=== PATIENT | female | born 1975 | race Caucasian/White ===

== ENCOUNTER 2018-02-13 06:40 | Emergency (ER) | payer OTHER ==
[2018-02-13] MEDS: SOD CHLORIDE 0.9% 1,000 ML IV (07:45)
[2018-02-13] MEDS: KETOROLAC 30 MG INJ IV (07:45)
[2018-02-13] MEDS: ONDANSETRON 4 MG INJ IV (07:45)
[2018-02-13 07:48] LABS: ADD MAN DIFF? NO
[2018-02-13 07:52] LABS: WHITE BLOOD COUNT 7.3 10^3/ul (4.8-10.8)
[2018-02-13 07:52] LABS: BASOPHIL # 0.1 10^3/ul (0.0-0.1); BASOPHILS % 0.8 % (0.0-2.0); EOSINOPHILS # 0.4 10^3/ul (0.0-0.5); EOSINOPHILS % 4.8 % (0.0-7.0); HEMATOCRIT 39.2 % (37.0-47.0); HEMOGLOBIN 13.3 g/dl (12.0-16.0); LYMPHOCYTES % 27.5 % (15.0-51.0); MEAN CORPUSCULAR HEMOGLOBIN 30.8 pg (29.0-33.0); MEAN CORPUSCULAR HGB CONC 33.9 g/dl (32.0-37.0); MEAN CORPUSCULAR VOLUME 90.7 fl (82.0-101.0); MEAN PLATELET VOLUME 11.9 fl (7.4-10.4); MONOCYTE # 0.8 10^3/ul (0.3-0.9); MONOCYTES % 10.5 % (0.0-11.0); NEUTROPHIL # 4.1 10^3/ul (1.6-7.5); PLATELET COUNT 208 10^3/UL (140-415); RED BLOOD COUNT 4.32 10^6/ul (4.20-5.40); RED CELL DISTRIBUTION WIDTH 12.8 % (11.5-14.5)
[2018-02-13 07:56] LABS: ADD UMIC YES; UR ASCORBIC ACID NEGATIVE (NEGATIVE); UR BACTERIA FEW /HPF (NONE SEEN); UR BILIRUBIN (Dip) NEGATIVE (NEGATIVE); UR BLOOD (Dip) 1+ mg/dL (NEGATIVE); UR CALCIUM OXALATE CRYSTAL FEW /HPF (NONE SEEN); UR CLARITY SLIGHTLY CLOUDY (CLEAR); UR COLOR AMBER (YELLOW); UR GLUCOSE (Dip) NEGATIVE (NEGATIVE); UR KETONES (Dip) NEGATIVE (NEGATIVE); UR LEUKOCYTE ESTERASE (Dip) NEGATIVE Leu/ul (NEGATIVE); UR MUCUS FEW /HPF (NONE SEEN); UR NITRITE (Dip) POSITIVE (NEGATIVE); UR RBC 6 /HPF (0-5); UR SPECIFIC GRAVITY (Dip) 1.024 (1.003-1.030); UR SQUAMOUS EPITHELIAL CELL FEW /HPF (FEW); UR TOTAL PROTEIN (Dip) 1+ mg/dl (NEGATIVE); UR UROBILINOGEN (Dip) 2+ mg/dL (NEGATIVE); UR WBC 4 /HPF (0-5)
[2018-02-13 08:28] LABS: ALANINE AMINOTRANSFERASE 25 IU/L (13-69); ALBUMIN/GLOBULIN RATIO 1.03; ALKALINE PHOSPHATASE 56 IU/L (42-121); ANION GAP 9 (5-13); ASPARTATE AMINO TRANSFERASE 29 IU/L (15-46); BILIRUBIN,INDIRECT 1.2 mg/dl (0-1.1); BILIRUBIN,TOTAL 1.2 mg/dl (0.2-1.3); BLOOD UREA NITROGEN 9 mg/dl (7-20); CALCIUM 8.7 mg/dl (8.4-10.2); CARBON DIOXIDE 23 mmol/L (21-31); CHLORIDE 109 mmol/L (97-110); CREATININE 0.71 mg/dl (0.44-1.00); GLUCOSE 98 mg/dl (70-220); LIPASE 131 U/L (23-300); POTASSIUM 3.3 mmol/L (3.5-5.1); SODIUM 141 mmol/L (135-144); TOTAL PROTEIN 5.9 g/dl (6.1-8.1)
[2018-02-13] MEDS: morphine 4 MG/ML VIAL IV (09:25)
[2018-02-13] MEDS: CEFTRIAXONE 1 GM/50 ML (PMX) 50 ML IVPB (09:44)
[2018-02-13] MEDS: morphine 2 MG INJ IV (11:37)
[2018-02-13] MEDS: ONDANSETRON (ODT) 4 MG TAB ODT (11:56)
== END 2018-02-13 12:08 | disposition home or self-care (01) ==
LOC: FTE 06:40
DX: N39.0 Urinary tract infection, site not specified (principal); F17.210 Nicotine dependence, cigarettes, uncomplicated
CPT/HCPCS: 36415; 76775; 80053; 81001; 81025; 83605; 83690; 85025; 87086; 96374; 96375; 96376; 99285-25

== ENCOUNTER 2018-03-08 07:18 | Inpatient (IN) | payer OTHER ==
[2018-03-08 08:05] LABS: ADD MAN DIFF? NO
[2018-03-08] MEDS: ONDANSETRON 4 MG INJ IV (08:05)
[2018-03-08] MEDS: SOD CHLORIDE 0.9% 1,000 ML IV (08:05)
[2018-03-08] MEDS: morphine 4 MG/ML VIAL IV (08:05)
[2018-03-08 08:06] LABS: WHITE BLOOD COUNT 8.1 10^3/ul (4.8-10.8)
[2018-03-08 08:06] LABS: BASOPHIL # 0.1 10^3/ul (0.0-0.1); EOSINOPHILS # 0.4 10^3/ul (0.0-0.5); EOSINOPHILS % 5.3 % (0.0-7.0); HEMATOCRIT 44.3 % (37.0-47.0); HEMOGLOBIN 15.2 g/dl (12.0-16.0); LYMPHOCYTES # 2.8 10^3/ul (0.8-2.9); LYMPHOCYTES % 34.8 % (15.0-51.0); MEAN CORPUSCULAR HEMOGLOBIN 30.9 pg (29.0-33.0); MEAN CORPUSCULAR HGB CONC 34.3 g/dl (32.0-37.0); MEAN PLATELET VOLUME 11.5 fl (7.4-10.4); MONOCYTE # 1.2 10^3/ul (0.3-0.9); NEUTROPHIL # 3.5 10^3/ul (1.6-7.5); NEUTROPHILS % 43.5 % (39.0-77.0); PLATELET COUNT 244 10^3/UL (140-415); RED BLOOD COUNT 4.92 10^6/ul (4.20-5.40)
[2018-03-08 08:42] LABS: ADD UMIC YES; UR ASCORBIC ACID NEGATIVE (NEGATIVE); UR BACTERIA FEW /HPF (NONE SEEN); UR BILIRUBIN (Dip) NEGATIVE (NEGATIVE); UR BLOOD (Dip) NEGATIVE (NEGATIVE); UR CLARITY CLOUDY (CLEAR); UR COLOR AMBER (YELLOW); UR GLUCOSE (Dip) NEGATIVE (NEGATIVE); UR KETONES (Dip) NEGATIVE (NEGATIVE); UR LEUKOCYTE ESTERASE (Dip) 3+ Leu/ul (NEGATIVE); UR MUCUS FEW /HPF (NONE SEEN); UR NITRITE (Dip) NEGATIVE (NEGATIVE); UR NONSQUAMOUS EPITHELIAL CELL 3 /HPF (NONE SEEN); UR RBC 20 /HPF (0-5); UR SQUAMOUS EPITHELIAL CELL MANY /HPF (FEW); UR TOTAL PROTEIN (Dip) 1+ mg/dl (NEGATIVE); UR UROBILINOGEN (Dip) 1+ mg/dL (NEGATIVE); UR WBC 40 /HPF (0-5)
[2018-03-08 09:39] LABS: ALANINE AMINOTRANSFERASE 18 IU/L (13-69); ALBUMIN/GLOBULIN RATIO 1.17; ALKALINE PHOSPHATASE 81 IU/L (42-121); ANION GAP 9 (5-13); ASPARTATE AMINO TRANSFERASE 24 IU/L (15-46); BILIRUBIN,INDIRECT 0.5 mg/dl (0-1.1); BILIRUBIN,TOTAL 0.5 mg/dl (0.2-1.3); BLOOD UREA NITROGEN 11 mg/dl (7-20); CALCIUM 9.5 mg/dl (8.4-10.2); CARBON DIOXIDE 22 mmol/L (21-31); CHLORIDE 110 mmol/L (97-110); CREATININE 0.97 mg/dl (0.44-1.00); Estimated GFR > 60 mL/min (>60); GLUCOSE 109 mg/dl (70-220); LIPASE 93 U/L (23-300); POTASSIUM 5.1 mmol/L (3.5-5.1); SODIUM 141 mmol/L (135-144); TOTAL PROTEIN 7.4 g/dl (6.1-8.1)
[2018-03-08] MEDS: HYDROmorphONE 2 MG/ML SYG IV (10:11)
[2018-03-08] MEDS: CEFTRIAXONE 1 GM/50 ML (PMX) 50 ML IVPB (10:11)
[2018-03-08] MEDS ORDERED: ALBUTEROL 0.5% (NEB) 2.5 MG/0.5 ML AMP (10:42)
[2018-03-08] MEDS ORDERED: IPRATROPIUM (NEB) 0.5 MG/2.5 ML AMP (10:42)
[2018-03-08] MEDS ORDERED: ACETAMINOPHEN 325 MG TAB PO ×2 (11:00→12:30)
[2018-03-08] MEDS ORDERED: ONDANSETRON 4 MG INJ IV (11:00)
[2018-03-08] MEDS ORDERED: ERTAPENEM SODIUM 1 GM in SOD CHLORIDE 0.9% 100 ML IVPB (12:00)
[2018-03-08] MEDS ORDERED: NACL 0.9% 3 ML SYG IV (12:30)
[2018-03-08 13:37] LABS: HEMOGLOBIN A1C 4.6 % (0-5.9)
[2018-03-08] MEDS: morphine 2 MG INJ IV ×2 (14:00→22:54)
[2018-03-08] MEDS: ERTAPENEM SODIUM 1 GM in SOD CHLORIDE 0.9% 100 ML IVPB (14:00)
[2018-03-08] MEDS: GABAPENTIN 300 MG CAP PO ×2 (14:00→21:13)
[2018-03-08] MEDS ORDERED: PANTOPRAZOLE (EC) 40 MG TAB PO (14:00)
[2018-03-08] MEDS: POLYETHYLENE GLYCOL 17 GM PACKET NGT ×2 (14:14→21:13)
[2018-03-08] MEDS: ENOXAPARIN 40 MG/0.4 ML SYG SC (14:15)
[2018-03-08] MEDS: LEVOFLOXACIN 750MG/D5W (PMX) 150 ML IVPB (15:21)
[2018-03-08] MEDS: PANTOPRAZOLE (EC) 40 MG TAB PO (15:21)
[2018-03-08] MEDS: BISACODYL (EC) 5 MG TAB PO (15:21)
[2018-03-08] MEDS: OXYCODONE/ACETAMINOPHEN (10/325) TAB PO (16:11)
[2018-03-08] MEDS: POLYETHYLENE GLYCOL 3350 119 GM POWDER PO (18:06)
[2018-03-08] MEDS: MAGNESIUM CITRATE 300 ML BTL PO (18:06)
[2018-03-08 19:23] LABS: AMPHETAMINE/METHAMPHETAMINE Negative (NEGATIVE); BARBITURATES Negative (NEGATIVE); BENZODIAZEPINES Negative (NEGATIVE); CANNABINOIDS Positive (NEGATIVE); COCAINE Negative (NEGATIVE)
[2018-03-08 19:24] LABS: OPIATES Positive (NEGATIVE)
[2018-03-09] MEDS: morphine 2 MG INJ IV ×5 (04:45→23:19)
[2018-03-09 05:19] LABS: ADD MAN DIFF? NO
[2018-03-09 05:23] LABS: WHITE BLOOD COUNT 6.5 10^3/ul (4.8-10.8)
[2018-03-09 05:23] LABS: BASOPHIL # 0.1 10^3/ul (0.0-0.1); BASOPHILS % 0.9 % (0.0-2.0); EOSINOPHILS # 0.4 10^3/ul (0.0-0.5); HEMATOCRIT 41.9 % (37.0-47.0); HEMOGLOBIN 14.2 g/dl (12.0-16.0); LYMPHOCYTES % 46.2 % (15.0-51.0); MEAN CORPUSCULAR HEMOGLOBIN 30.8 pg (29.0-33.0); MEAN CORPUSCULAR HGB CONC 33.9 g/dl (32.0-37.0); MEAN CORPUSCULAR VOLUME 90.9 fl (82.0-101.0); MEAN PLATELET VOLUME 10.8 fl (7.4-10.4); MONOCYTE # 0.7 10^3/ul (0.3-0.9); MONOCYTES % 10.3 % (0.0-11.0); NEUTROPHIL # 2.4 10^3/ul (1.6-7.5); NEUTROPHILS % 36.4 % (39.0-77.0); PLATELET COUNT 260 10^3/UL (140-415); RED BLOOD COUNT 4.61 10^6/ul (4.20-5.40); RED CELL DISTRIBUTION WIDTH 13.1 % (11.5-14.5)
[2018-03-09] MEDS: PANTOPRAZOLE (EC) 40 MG TAB PO ×2 (05:55→17:42)
[2018-03-09] MEDS: POLYETHYLENE GLYCOL 3350 119 GM POWDER PO (05:55)
[2018-03-09 05:56] LABS: ALANINE AMINOTRANSFERASE 21 IU/L (13-69); ALBUMIN/GLOBULIN RATIO 1.48; ALKALINE PHOSPHATASE 68 IU/L (42-121); ANION GAP 9 (5-13); ASPARTATE AMINO TRANSFERASE 24 IU/L (15-46); BILIRUBIN,INDIRECT 0.5 mg/dl (0-1.1); BILIRUBIN,TOTAL 0.5 mg/dl (0.2-1.3); BLOOD UREA NITROGEN 8 mg/dl (7-20); CALCIUM 9.4 mg/dl (8.4-10.2); CARBON DIOXIDE 25 mmol/L (21-31); CHLORIDE 106 mmol/L (97-110); CREATININE 0.73 mg/dl (0.44-1.00); Estimated GFR > 60 mL/min (>60); GLUCOSE 93 mg/dl (70-220); POTASSIUM 4.3 mmol/L (3.5-5.1); SODIUM 140 mmol/L (135-144); TOTAL PROTEIN 6.7 g/dl (6.1-8.1)
[2018-03-09 05:58] LABS: PHOSPHORUS 3.6 mg/dl (2.5-4.9)
[2018-03-09 05:58] LABS: CHOL/HDL RATIO 8.4 RATIO; CHOLESTEROL 202 mg/dl (100-200); HDL CHOLESTEROL 24 mg/dl (34-88); LDL CHOLESTEROL,CALCULATED 145 mg/dl; MAGNESIUM 1.7 mg/dl (1.7-2.5); TRIGLYCERIDES 164 mg/dl (0-149)
[2018-03-09] MEDS: GABAPENTIN 300 MG CAP PO ×3 (08:37→20:23)
[2018-03-09] MEDS: PAROXETINE 20 MG TAB PO (08:37)
[2018-03-09] MEDS: POLYETHYLENE GLYCOL 17 GM PACKET NGT ×2 (08:38→20:20)
[2018-03-09] MEDS: BISACODYL (EC) 5 MG TAB PO (08:38)
[2018-03-09] MEDS: CHOLECALCIFEROL 1,000 UNIT TAB PO (08:38)
[2018-03-09] MEDS: ONDANSETRON 4 MG INJ IV (08:55)
[2018-03-09] MEDS: LORAZEPAM 2 MG INJ IV (10:10)
[2018-03-09] MEDS: LEVOFLOXACIN 750MG/D5W (PMX) 150 ML IVPB (13:50)
[2018-03-09] MEDS: VANCOMYCIN HCL 250 MG/5ML POSYG PO ×2 (17:42→23:16)
[2018-03-10 05:26] LABS: ADD MAN DIFF? NO
[2018-03-10 05:29] LABS: WHITE BLOOD COUNT 8.4 10^3/ul (4.8-10.8)
[2018-03-10 05:29] LABS: BASOPHIL # 0.1 10^3/ul (0.0-0.1); BASOPHILS % 0.6 % (0.0-2.0); EOSINOPHILS # 0.4 10^3/ul (0.0-0.5); EOSINOPHILS % 5.3 % (0.0-7.0); HEMATOCRIT 42.1 % (37.0-47.0); HEMOGLOBIN 14.3 g/dl (12.0-16.0); LYMPHOCYTES # 3.2 10^3/ul (0.8-2.9); LYMPHOCYTES % 38.5 % (15.0-51.0); MEAN CORPUSCULAR HEMOGLOBIN 30.4 pg (29.0-33.0); MEAN CORPUSCULAR VOLUME 89.4 fl (82.0-101.0); MEAN PLATELET VOLUME 10.9 fl (7.4-10.4); MONOCYTE # 0.7 10^3/ul (0.3-0.9); MONOCYTES % 8.6 % (0.0-11.0); NEUTROPHIL # 3.9 10^3/ul (1.6-7.5); NEUTROPHILS % 46.6 % (39.0-77.0); PLATELET COUNT 280 10^3/UL (140-415); RED BLOOD COUNT 4.71 10^6/ul (4.20-5.40); RED CELL DISTRIBUTION WIDTH 12.6 % (11.5-14.5)
[2018-03-10] MEDS: PANTOPRAZOLE (EC) 40 MG TAB PO ×2 (05:42→18:45)
[2018-03-10] MEDS: morphine 2 MG INJ IV ×5 (05:42→23:38)
[2018-03-10] MEDS: VANCOMYCIN HCL 250 MG/5ML POSYG PO ×4 (05:46→23:38)
[2018-03-10 06:02] LABS: MAGNESIUM 1.6 mg/dl (1.7-2.5)
[2018-03-10 06:02] LABS: PHOSPHORUS 4.2 mg/dl (2.5-4.9)
[2018-03-10 06:10] LABS: ALANINE AMINOTRANSFERASE 15 IU/L (13-69); ALBUMIN 3.9 g/dl (3.3-4.9); ALBUMIN/GLOBULIN RATIO 1.44; ALKALINE PHOSPHATASE 70 IU/L (42-121); ANION GAP 10 (5-13); ASPARTATE AMINO TRANSFERASE 20 IU/L (15-46); BILIRUBIN,INDIRECT 0.6 mg/dl (0-1.1); BILIRUBIN,TOTAL 0.6 mg/dl (0.2-1.3); BLOOD UREA NITROGEN 8 mg/dl (7-20); CALCIUM 9.6 mg/dl (8.4-10.2); CARBON DIOXIDE 23 mmol/L (21-31); CHLORIDE 107 mmol/L (97-110); CREATININE 0.68 mg/dl (0.44-1.00); Estimated GFR > 60 mL/min (>60); GLUCOSE 106 mg/dl (70-220); POTASSIUM 4.1 mmol/L (3.5-5.1); SODIUM 140 mmol/L (135-144); TOTAL PROTEIN 6.6 g/dl (6.1-8.1)
[2018-03-10] MEDS: POLYETHYLENE GLYCOL 17 GM PACKET NGT ×2 (09:00→21:00)
[2018-03-10] MEDS: GABAPENTIN 300 MG CAP PO ×3 (09:35→21:07)
[2018-03-10] MEDS: PAROXETINE 20 MG TAB PO (09:35)
[2018-03-10] MEDS: CHOLECALCIFEROL 1,000 UNIT TAB PO (09:35)
[2018-03-10] MEDS: ENOXAPARIN 40 MG/0.4 ML SYG SC (09:37)
[2018-03-10] MEDS: ONDANSETRON 4 MG INJ IV (09:45)
[2018-03-10] MEDS: LORAZEPAM 2 MG INJ IV ×2 (13:48→21:11)
[2018-03-10] MEDS: MAGNESIUM SULFATE 2 GM/50 ML 50 ML IVPB (15:06)
[2018-03-10] MEDS: HYOSCYAMINE 0.125 MG TAB PO (18:44)
[2018-03-10] MEDS: SUCRALFATE (100 MG/ML) 10ML CUP PO ×2 (18:45→21:07)
[2018-03-10] MEDS ORDERED: LOPERAMIDE 2 MG CAP (19:30)
[2018-03-10] MEDS: LOPERAMIDE 2 MG CAP PO (21:07)
[2018-03-11 05:17] LABS: ADD MAN DIFF? NO
[2018-03-11 05:18] LABS: WHITE BLOOD COUNT 8.1 10^3/ul (4.8-10.8)
[2018-03-11 05:18] LABS: BASOPHIL # 0.1 10^3/ul (0.0-0.1); BASOPHILS % 0.7 % (0.0-2.0); EOSINOPHILS # 0.4 10^3/ul (0.0-0.5); EOSINOPHILS % 5.2 % (0.0-7.0); HEMATOCRIT 40.2 % (37.0-47.0); HEMOGLOBIN 13.7 g/dl (12.0-16.0); LYMPHOCYTES # 3.9 10^3/ul (0.8-2.9); LYMPHOCYTES % 47.8 % (15.0-51.0); MEAN CORPUSCULAR HEMOGLOBIN 30.4 pg (29.0-33.0); MEAN CORPUSCULAR HGB CONC 34.1 g/dl (32.0-37.0); MEAN CORPUSCULAR VOLUME 89.1 fl (82.0-101.0); MEAN PLATELET VOLUME 11.1 fl (7.4-10.4); MONOCYTE # 0.7 10^3/ul (0.3-0.9); MONOCYTES % 8.8 % (0.0-11.0); NEUTROPHILS % 37.3 % (39.0-77.0); PLATELET COUNT 266 10^3/UL (140-415); RED BLOOD COUNT 4.51 10^6/ul (4.20-5.40); RED CELL DISTRIBUTION WIDTH 12.6 % (11.5-14.5)
[2018-03-11] MEDS: PANTOPRAZOLE (EC) 40 MG TAB PO ×2 (05:39→18:08)
[2018-03-11] MEDS: VANCOMYCIN HCL 250 MG/5ML POSYG PO ×3 (05:39→18:09)
[2018-03-11] MEDS: morphine 2 MG INJ IV ×3 (05:39→14:45)
[2018-03-11 05:46] LABS: ALBUMIN 3.8 g/dl (3.3-4.9); ALBUMIN/GLOBULIN RATIO 1.31; ASPARTATE AMINO TRANSFERASE 21 IU/L (15-46); BILIRUBIN,INDIRECT 0.7 mg/dl (0-1.1); BILIRUBIN,TOTAL 0.7 mg/dl (0.2-1.3); BLOOD UREA NITROGEN 10 mg/dl (7-20); CARBON DIOXIDE 26 mmol/L (21-31); CREATININE 0.75 mg/dl (0.44-1.00); Estimated GFR > 60 mL/min (>60); TOTAL PROTEIN 6.7 g/dl (6.1-8.1)
[2018-03-11 06:05] LABS: MAGNESIUM 1.7 mg/dl (1.7-2.5)
[2018-03-11 06:05] LABS: PHOSPHORUS 4.4 mg/dl (2.5-4.9)
[2018-03-11 06:26] LABS: ALANINE AMINOTRANSFERASE 14 IU/L (13-69); ALKALINE PHOSPHATASE 65 IU/L (42-121); ANION GAP 10 (5-13); CALCIUM 9.4 mg/dl (8.4-10.2); CHLORIDE 106 mmol/L (97-110); GLUCOSE 104 mg/dl (70-220); POTASSIUM 3.9 mmol/L (3.5-5.1); SODIUM 142 mmol/L (135-144)
[2018-03-11] MEDS: POLYETHYLENE GLYCOL 17 GM PACKET NGT ×2 (09:00→20:11)
[2018-03-11] MEDS: LOPERAMIDE 2 MG CAP PO ×3 (09:58→20:07)
[2018-03-11] MEDS: SUCRALFATE (100 MG/ML) 10ML CUP PO ×4 (09:58→20:07)
[2018-03-11] MEDS: GABAPENTIN 300 MG CAP PO ×3 (09:58→20:07)
[2018-03-11] MEDS: PAROXETINE 20 MG TAB PO (09:58)
[2018-03-11] MEDS: CHOLECALCIFEROL 1,000 UNIT TAB PO (09:58)
[2018-03-11] MEDS: ENOXAPARIN 40 MG/0.4 ML SYG SC (09:59)
[2018-03-11] MEDS: LORAZEPAM 2 MG INJ IV ×2 (11:57→18:09)
[2018-03-11] MEDS: OXYCODONE/ACETAMINOPHEN (10/325) TAB PO (16:58)
[2018-03-11] MEDS: FENTAnyl 50 MCG/ML VIAL (21:08)
[2018-03-11] MEDS: MIDAZOLAM 1 MG/ML 2 ML INJ ×3 (21:09)
[2018-03-12] MEDS: VANCOMYCIN HCL 250 MG/5ML POSYG PO ×4 (01:18→17:42)
[2018-03-12] MEDS: OXYCODONE/ACETAMINOPHEN (10/325) TAB PO ×3 (01:18→18:32)
[2018-03-12 05:32] LABS: ADD MAN DIFF? NO
[2018-03-12 05:51] LABS: WHITE BLOOD COUNT 7.4 10^3/ul (4.8-10.8)
[2018-03-12 05:51] LABS: BASOPHIL # 0.1 10^3/ul (0.0-0.1); BASOPHILS % 0.8 % (0.0-2.0); EOSINOPHILS # 0.4 10^3/ul (0.0-0.5); EOSINOPHILS % 4.7 % (0.0-7.0); HEMATOCRIT 39.5 % (37.0-47.0); HEMOGLOBIN 13.4 g/dl (12.0-16.0); LYMPHOCYTES # 3.8 10^3/ul (0.8-2.9); LYMPHOCYTES % 50.6 % (15.0-51.0); MEAN CORPUSCULAR HEMOGLOBIN 30.2 pg (29.0-33.0); MEAN CORPUSCULAR HGB CONC 33.9 g/dl (32.0-37.0); MEAN PLATELET VOLUME 11.2 fl (7.4-10.4); MONOCYTE # 0.6 10^3/ul (0.3-0.9); MONOCYTES % 8.3 % (0.0-11.0); NEUTROPHIL # 2.6 10^3/ul (1.6-7.5); NEUTROPHILS % 35.3 % (39.0-77.0); PLATELET COUNT 270 10^3/UL (140-415); RED BLOOD COUNT 4.44 10^6/ul (4.20-5.40); RED CELL DISTRIBUTION WIDTH 12.4 % (11.5-14.5)
[2018-03-12] MEDS: PANTOPRAZOLE (EC) 40 MG TAB PO (06:14)
[2018-03-12] MEDS: LORAZEPAM 2 MG INJ IV ×3 (06:14→18:24)
[2018-03-12 06:19] LABS: MAGNESIUM 1.6 mg/dl (1.7-2.5)
[2018-03-12 06:19] LABS: PHOSPHORUS 4.6 mg/dl (2.5-4.9)
[2018-03-12 06:46] LABS: ANION GAP 7 (5-13); BLOOD UREA NITROGEN 9 mg/dl (7-20); CARBON DIOXIDE 25 mmol/L (21-31); CHLORIDE 109 mmol/L (97-110); CREATININE 0.64 mg/dl (0.44-1.00); Estimated GFR > 60 mL/min (>60); GLUCOSE 100 mg/dl (70-220); POTASSIUM 3.5 mmol/L (3.5-5.1); SODIUM 141 mmol/L (135-144)
[2018-03-12] MEDS: CHOLECALCIFEROL 1,000 UNIT TAB PO (08:40)
[2018-03-12] MEDS: GABAPENTIN 300 MG CAP PO ×3 (08:40→21:06)
[2018-03-12] MEDS: PAROXETINE 20 MG TAB PO (08:40)
[2018-03-12] MEDS: LOPERAMIDE 2 MG CAP PO ×2 (08:40→12:05)
[2018-03-12] MEDS: SUCRALFATE (100 MG/ML) 10ML CUP PO ×4 (08:40→21:06)
[2018-03-12] MEDS: POLYETHYLENE GLYCOL 17 GM PACKET NGT (08:45)
[2018-03-12] MEDS: ENOXAPARIN 40 MG/0.4 ML SYG SC (08:45)
[2018-03-12] MEDS ORDERED: morphine 2 MG INJ (09:58)
[2018-03-12] MEDS: morphine 2 MG INJ IV (09:59)
[2018-03-12] MEDS ORDERED: morphine 4 MG/ML VIAL (13:41)
[2018-03-12] MEDS: morphine 4 MG/ML VIAL IV (13:43)
[2018-03-12] MEDS ORDERED: ONDANSETRON 4 MG INJ IV (15:30)
[2018-03-12] MEDS ORDERED: AL HYDROX/MG HYDROX/SIMETH 30 ML CUP (16:13)
[2018-03-12] MEDS: AL HYDROX/MG HYDROX/SIMETH 30 ML CUP PO (16:18)
[2018-03-12] MEDS: KETOROLAC 30 MG INJ IV ×2 (16:18→22:24)
[2018-03-12] MEDS ORDERED: CALCIUM CARBONATE 500 MG CHEW TAB PO (16:30)
[2018-03-13] MEDS: LORAZEPAM 2 MG INJ IV ×4 (00:28→19:52)
[2018-03-13] MEDS: VANCOMYCIN HCL 250 MG/5ML POSYG PO ×5 (00:28→23:58)
[2018-03-13] MEDS: OXYCODONE/ACETAMINOPHEN (10/325) TAB PO ×4 (00:31→20:27)
[2018-03-13] MEDS: KETOROLAC 30 MG INJ IV ×4 (04:25→23:59)
[2018-03-13 06:03] LABS: ADD MAN DIFF? NO
[2018-03-13 06:11] LABS: WHITE BLOOD COUNT 7.2 10^3/ul (4.8-10.8)
[2018-03-13 06:11] LABS: BASOPHILS % 0.6 % (0.0-2.0); EOSINOPHILS # 0.3 10^3/ul (0.0-0.5); EOSINOPHILS % 4.6 % (0.0-7.0); HEMATOCRIT 37.8 % (37.0-47.0); HEMOGLOBIN 12.7 g/dl (12.0-16.0); LYMPHOCYTES # 3.2 10^3/ul (0.8-2.9); LYMPHOCYTES % 44.2 % (15.0-51.0); MEAN CORPUSCULAR HEMOGLOBIN 30.2 pg (29.0-33.0); MEAN CORPUSCULAR HGB CONC 33.6 g/dl (32.0-37.0); MEAN CORPUSCULAR VOLUME 89.8 fl (82.0-101.0); MEAN PLATELET VOLUME 11.3 fl (7.4-10.4); MONOCYTE # 0.6 10^3/ul (0.3-0.9); MONOCYTES % 7.9 % (0.0-11.0); NEUTROPHIL # 3.1 10^3/ul (1.6-7.5); NEUTROPHILS % 42.4 % (39.0-77.0); PLATELET COUNT 260 10^3/UL (140-415); RED BLOOD COUNT 4.21 10^6/ul (4.20-5.40); RED CELL DISTRIBUTION WIDTH 12.3 % (11.5-14.5)
[2018-03-13 06:34] LABS: INR 1.01; PROTIME 13.4 Sec (11.9-14.9)
[2018-03-13 07:17] LABS: ALANINE AMINOTRANSFERASE 16 IU/L (13-69); ALBUMIN 3.6 g/dl (3.3-4.9); ALBUMIN/GLOBULIN RATIO 1.63; ALKALINE PHOSPHATASE 60 IU/L (42-121); ANION GAP 10 (5-13); ASPARTATE AMINO TRANSFERASE 22 IU/L (15-46); BILIRUBIN,INDIRECT 0.4 mg/dl (0-1.1); BILIRUBIN,TOTAL 0.4 mg/dl (0.2-1.3); BLOOD UREA NITROGEN 10 mg/dl (7-20); CALCIUM 9.2 mg/dl (8.4-10.2); CARBON DIOXIDE 23 mmol/L (21-31); CHLORIDE 107 mmol/L (97-110); CREATININE 0.78 mg/dl (0.44-1.00); Estimated GFR > 60 mL/min (>60); GLUCOSE 96 mg/dl (70-220); MAGNESIUM 1.5 mg/dl (1.7-2.5); PHOSPHORUS 4.6 mg/dl (2.5-4.9); POTASSIUM 3.5 mmol/L (3.5-5.1); SODIUM 140 mmol/L (135-144); TOTAL PROTEIN 5.8 g/dl (6.1-8.1)
[2018-03-13] MEDS: SUCRALFATE (100 MG/ML) 10ML CUP PO ×4 (08:16→20:26)
[2018-03-13] MEDS: PAROXETINE 20 MG TAB PO (08:16)
[2018-03-13] MEDS: GABAPENTIN 300 MG CAP PO ×3 (08:16→20:27)
[2018-03-13] MEDS: ENOXAPARIN 40 MG/0.4 ML SYG SC (08:17)
[2018-03-13] MEDS: LOPERAMIDE 2 MG CAP PO (12:47)
[2018-03-13] MEDS: LACTOBACILLUS RHAMNOSUS CAP PO ×2 (12:47→20:27)
[2018-03-13] MEDS: MAGNESIUM OXIDE 400 MG TAB PO ×2 (12:49→20:27)
[2018-03-14] MEDS: LORAZEPAM 2 MG INJ IV ×4 (02:02→20:34)
[2018-03-14] MEDS: OXYCODONE/ACETAMINOPHEN (10/325) TAB PO ×4 (02:38→21:22)
[2018-03-14] MEDS: VANCOMYCIN HCL 250 MG/5ML POSYG PO ×3 (05:54→18:15)
[2018-03-14] MEDS: KETOROLAC 30 MG INJ IV ×3 (05:54→18:15)
[2018-03-14 06:59] LABS: ADD MAN DIFF? NO
[2018-03-14 07:06] LABS: BASOPHIL # 0.1 10^3/ul (0.0-0.1); BASOPHILS % 0.7 % (0.0-2.0); EOSINOPHILS # 0.4 10^3/ul (0.0-0.5); EOSINOPHILS % 4.4 % (0.0-7.0); HEMATOCRIT 38.8 % (37.0-47.0); LYMPHOCYTES # 3.8 10^3/ul (0.8-2.9); LYMPHOCYTES % 41.9 % (15.0-51.0); MEAN CORPUSCULAR HEMOGLOBIN 30.4 pg (29.0-33.0); MEAN CORPUSCULAR HGB CONC 33.5 g/dl (32.0-37.0); MEAN CORPUSCULAR VOLUME 90.7 fl (82.0-101.0); MONOCYTE # 0.6 10^3/ul (0.3-0.9); NEUTROPHIL # 4.1 10^3/ul (1.6-7.5); NEUTROPHILS % 45.8 % (39.0-77.0); PLATELET COUNT 289 10^3/UL (140-415); RED BLOOD COUNT 4.28 10^6/ul (4.20-5.40); RED CELL DISTRIBUTION WIDTH 12.2 % (11.5-14.5)
[2018-03-14 07:40] LABS: ALANINE AMINOTRANSFERASE 19 IU/L (13-69); ALBUMIN 3.4 g/dl (3.3-4.9); ALKALINE PHOSPHATASE 66 IU/L (42-121); ANION GAP 6 (5-13); ASPARTATE AMINO TRANSFERASE 21 IU/L (15-46); BILIRUBIN,INDIRECT 0.6 mg/dl (0-1.1); BILIRUBIN,TOTAL 0.6 mg/dl (0.2-1.3); BLOOD UREA NITROGEN 11 mg/dl (7-20); CALCIUM 9.2 mg/dl (8.4-10.2); CARBON DIOXIDE 29 mmol/L (21-31); CHLORIDE 107 mmol/L (97-110); CREATININE 0.69 mg/dl (0.44-1.00); Estimated GFR > 60 mL/min (>60); GLUCOSE 93 mg/dl (70-220); PHOSPHORUS 4.1 mg/dl (2.5-4.9); POTASSIUM 3.9 mmol/L (3.5-5.1); SODIUM 142 mmol/L (135-144)
[2018-03-14] MEDS: SUCRALFATE (100 MG/ML) 10ML CUP PO ×2 (08:01→12:13)
[2018-03-14] MEDS: LACTOBACILLUS RHAMNOSUS CAP PO ×2 (08:02→20:34)
[2018-03-14] MEDS: PAROXETINE 20 MG TAB PO (08:02)
[2018-03-14] MEDS: GABAPENTIN 300 MG CAP PO ×3 (08:02→20:34)
[2018-03-14] MEDS: MAGNESIUM OXIDE 400 MG TAB PO (08:02)
[2018-03-14] MEDS: ENOXAPARIN 40 MG/0.4 ML SYG SC (08:03)
[2018-03-14] MEDS: LOPERAMIDE 2 MG CAP PO (20:34)
[2018-03-14] MEDS: RANITIDINE 150 MG TAB PO (20:34)
[2018-03-15] MEDS: VANCOMYCIN HCL 250 MG/5ML POSYG PO ×4 (00:17→18:10)
[2018-03-15] MEDS: KETOROLAC 30 MG INJ IV ×4 (00:17→21:38)
[2018-03-15] MEDS: LORAZEPAM 2 MG INJ IV ×4 (02:56→21:38)
[2018-03-15] MEDS: OXYCODONE/ACETAMINOPHEN (10/325) TAB PO ×3 (05:24→18:10)
[2018-03-15] MEDS: LACTOBACILLUS RHAMNOSUS CAP PO ×2 (08:42→21:43)
[2018-03-15] MEDS: RANITIDINE 150 MG TAB PO ×2 (08:42→21:43)
[2018-03-15] MEDS: GABAPENTIN 300 MG CAP PO ×3 (08:42→21:43)
[2018-03-15] MEDS: PAROXETINE 20 MG TAB PO (08:42)
[2018-03-15] MEDS: ENOXAPARIN 40 MG/0.4 ML SYG SC (08:43)
[2018-03-15] MEDS: CHOLESTYRAMINE 4 GM PACKET PO ×2 (12:17→21:43)
[2018-03-16] MEDS: VANCOMYCIN HCL 250 MG/5ML POSYG PO ×4 (00:16→17:04)
[2018-03-16] MEDS: OXYCODONE/ACETAMINOPHEN (10/325) TAB PO ×3 (00:16→14:54)
[2018-03-16] MEDS: LORAZEPAM 2 MG INJ IV ×2 (03:55→10:38)
[2018-03-16] MEDS: CHOLESTYRAMINE 4 GM PACKET PO ×2 (08:20→13:21)
[2018-03-16] MEDS: LACTOBACILLUS RHAMNOSUS CAP PO (08:21)
[2018-03-16] MEDS: GABAPENTIN 300 MG CAP PO ×2 (08:21→13:21)
[2018-03-16] MEDS: PAROXETINE 20 MG TAB PO (08:21)
[2018-03-16] MEDS: ENOXAPARIN 40 MG/0.4 ML SYG SC (08:21)
[2018-03-16] MEDS: RANITIDINE 150 MG TAB PO (08:21)
[2018-03-16 08:59] LABS: ADD MAN DIFF? NO
[2018-03-16 09:02] LABS: BASOPHILS % 0.6 % (0.0-2.0); EOSINOPHILS # 0.3 10^3/ul (0.0-0.5); EOSINOPHILS % 4.2 % (0.0-7.0); HEMATOCRIT 37.1 % (37.0-47.0); HEMOGLOBIN 12.5 g/dl (12.0-16.0); LYMPHOCYTES # 2.4 10^3/ul (0.8-2.9); LYMPHOCYTES % 34.4 % (15.0-51.0); MEAN CORPUSCULAR HEMOGLOBIN 30.3 pg (29.0-33.0); MEAN CORPUSCULAR HGB CONC 33.7 g/dl (32.0-37.0); MEAN CORPUSCULAR VOLUME 89.8 fl (82.0-101.0); MONOCYTE # 0.5 10^3/ul (0.3-0.9); MONOCYTES % 7.4 % (0.0-11.0); NEUTROPHIL # 3.7 10^3/ul (1.6-7.5); PLATELET COUNT 241 10^3/UL (140-415); RED BLOOD COUNT 4.13 10^6/ul (4.20-5.40); RED CELL DISTRIBUTION WIDTH 12.4 % (11.5-14.5)
[2018-03-16 09:02] LABS: WHITE BLOOD COUNT 7.1 10^3/ul (4.8-10.8)
[2018-03-16 09:19] LABS: ALANINE AMINOTRANSFERASE 23 IU/L (13-69); ALBUMIN 3.2 g/dl (3.3-4.9); ALBUMIN/GLOBULIN RATIO 1.39; ALKALINE PHOSPHATASE 55 IU/L (42-121); ANION GAP 7 (5-13); ASPARTATE AMINO TRANSFERASE 24 IU/L (15-46); BILIRUBIN,INDIRECT 0.5 mg/dl (0-1.1); BILIRUBIN,TOTAL 0.5 mg/dl (0.2-1.3); BLOOD UREA NITROGEN 9 mg/dl (7-20); CALCIUM 8.9 mg/dl (8.4-10.2); CARBON DIOXIDE 28 mmol/L (21-31); CHLORIDE 107 mmol/L (97-110); CREATININE 0.65 mg/dl (0.44-1.00); Estimated GFR > 60 mL/min (>60); GLUCOSE 87 mg/dl (70-220); POTASSIUM 4.2 mmol/L (3.5-5.1); SODIUM 142 mmol/L (135-144); TOTAL PROTEIN 5.5 g/dl (6.1-8.1)
[2018-03-16] MEDS: LOPERAMIDE 2 MG CAP PO ×2 (13:21→17:05)
[2018-03-19] MEDS ORDERED: CHOLECALCIFEROL 1,000 UNIT TAB PO (09:00)
[2018-03-19] MEDS ORDERED: PANTOPRAZOLE (EC) 40 MG TAB PO (14:30)
== END 2018-03-16 17:10 | disposition home or self-care (01) | DRG 372 ==
LOC: E/R 07:18 → PP2 11:01
PROVIDERS: Internal Medicine
PROC: 0DBF8ZX Excision of Right Large Intestine, Via Natural or Artificial Opening Endoscopic, Diagnostic (ICD-10-PCS; principal; 2018-03-09 15:24)
PROC: 0DB98ZX Excision of Duodenum, Via Natural or Artificial Opening Endoscopic, Diagnostic (ICD-10-PCS; 2018-03-09 15:24)
PROC: 0DB78ZX Excision of Stomach, Pylorus, Via Natural or Artificial Opening Endoscopic, Diagnostic (ICD-10-PCS; 2018-03-09 15:24)
PROC: 0DBB8ZX Excision of Ileum, Via Natural or Artificial Opening Endoscopic, Diagnostic (ICD-10-PCS; 2018-03-09 15:24)
PROC: 0DBG8ZX Excision of Left Large Intestine, Via Natural or Artificial Opening Endoscopic, Diagnostic (ICD-10-PCS; 2018-03-09 15:24)
DX: A04.72 Enterocolitis due to Clostridium difficile, not specified as recurrent (principal); N39.0 Urinary tract infection, site not specified; K29.70 Gastritis, unspecified, without bleeding; Z68.41 Body mass index [BMI] 40.0-44.9, adult; N20.0 Calculus of kidney; E66.01 Morbid (severe) obesity due to excess calories; R00.0 Tachycardia, unspecified; M79.7 Fibromyalgia; F17.290 Nicotine dependence, other tobacco product, uncomplicated; R12 Heartburn; R63.4 Abnormal weight loss; N83.202 Unspecified ovarian cyst, left side
CPT/HCPCS: 36415; 74018; 74176; 76705; 76830; 76856; 80048; 80053; 80061; 80307; 81001; 81025; 83036; 83690; 83735; 84100; 84443; 85025; 85610; 87045; 87075; 87081; 87086; 87177; 88305; 88312; 96374; 96375; 99285-25; G0378

== ENCOUNTER 2018-06-26 07:14 | Emergency (ER) | payer OTHER ==
[2018-06-26] MEDS: ONDANSETRON (ODT) 4 MG TAB ODT (07:43)
[2018-06-26] MEDS: HYDROCODONE/APAP (10/325) TAB PO (07:43)
[2018-06-26 07:47] LABS: URINE PH (Dip) POC 5.5 (5.0-8.5)
[2018-06-26 07:47] LABS: URINE BLOOD (Dip) POC 2+ (NEGATIVE); URINE GLUCOSE (Dip) POC Negative (NEGATIVE); URINE KETONES (Dip) POC Negative (NEGATIVE); URINE LEUKOCYTE EST (Dip) POC Negative (NEGATIVE); URINE NITRITE (Dip) POC Negative (NEGATIVE); URINE TOTAL PROTEIN POC Negative (NEGATIVE)
== END 2018-06-26 09:20 | disposition home or self-care (01) ==
LOC: E/R 07:14
DX: R10.9 Unspecified abdominal pain (principal); F17.210 Nicotine dependence, cigarettes, uncomplicated; R11.2 Nausea with vomiting, unspecified
CPT/HCPCS: 81003; 81025; 99283

== ENCOUNTER 2018-07-24 14:18 | Emergency (ER) | payer OTHER ==
[2018-07-24 17:13] LABS: ADD MAN DIFF? NO
[2018-07-24] MEDS: KETOROLAC 15 MG INJ IV (17:15)
[2018-07-24] MEDS: LIDOCAINE/MYLANTA 40 ML BTL PO (17:16)
[2018-07-24] MEDS: FAMOTIDINE 20 MG TAB PO (17:16)
[2018-07-24] MEDS: ONDANSETRON 4 MG INJ IV (17:17)
[2018-07-24] MEDS: BELLADONNA/PHENOBARBITAL TAB PO (17:17)
[2018-07-24] MEDS: SOD CHLORIDE 0.9% 1,000 ML IV (17:18)
[2018-07-24 17:21] LABS: WHITE BLOOD COUNT 11.5 10^3/ul (4.8-10.8)
[2018-07-24 17:21] LABS: BASOPHIL # 0.1 10^3/ul (0.0-0.1); BASOPHILS % 0.6 % (0.0-2.0); EOSINOPHILS # 0.2 10^3/ul (0.0-0.5); EOSINOPHILS % 1.9 % (0.0-7.0); HEMATOCRIT 44.1 % (37.0-47.0); HEMOGLOBIN 14.8 g/dl (12.0-16.0); LYMPHOCYTES # 3.6 10^3/ul (0.8-2.9); LYMPHOCYTES % 31.7 % (15.0-51.0); MEAN CORPUSCULAR HEMOGLOBIN 30.7 pg (29.0-33.0); MEAN CORPUSCULAR HGB CONC 33.6 g/dl (32.0-37.0); MEAN CORPUSCULAR VOLUME 91.5 fl (82.0-101.0); MEAN PLATELET VOLUME 10.3 fl (7.4-10.4); MONOCYTE # 0.8 10^3/ul (0.3-0.9); NEUTROPHIL # 6.7 10^3/ul (1.6-7.5); NEUTROPHILS % 58.5 % (39.0-77.0); PLATELET COUNT 310 10^3/UL (140-415); RED BLOOD COUNT 4.82 10^6/ul (4.20-5.40); RED CELL DISTRIBUTION WIDTH 11.9 % (11.5-14.5)
[2018-07-24 17:24] LABS: ADD UMIC YES; UR ASCORBIC ACID NEGATIVE (NEGATIVE); UR BACTERIA FEW /HPF (NONE SEEN); UR BILIRUBIN (Dip) NEGATIVE (NEGATIVE); UR BLOOD (Dip) 1+ mg/dL (NEGATIVE); UR CLARITY SLIGHTLY CLOUDY (CLEAR); UR COLOR YELLOW (YELLOW); UR GLUCOSE (Dip) NEGATIVE (NEGATIVE); UR KETONES (Dip) NEGATIVE (NEGATIVE); UR LEUKOCYTE ESTERASE (Dip) TRACE Leu/ul (NEGATIVE); UR MUCUS FEW /HPF (NONE SEEN); UR NITRITE (Dip) NEGATIVE (NEGATIVE); UR RBC 16 /HPF (0-5); UR SPECIFIC GRAVITY (Dip) 1.023 (1.003-1.030); UR SQUAMOUS EPITHELIAL CELL MODERATE /HPF (FEW); UR TOTAL PROTEIN (Dip) NEGATIVE (NEGATIVE); UR UROBILINOGEN (Dip) NEGATIVE (NEGATIVE); UR WBC 28 /HPF (0-5)
[2018-07-24 17:40] LABS: INR 0.92; PROTIME 12.5 Sec (11.9-14.9)
[2018-07-24] MEDS: CEFTRIAXONE 1 GM/50 ML (PMX) 50 ML IVPB (17:44)
[2018-07-24 17:47] LABS: ALANINE AMINOTRANSFERASE 15 IU/L (13-69); ALBUMIN 4.5 g/dl (3.3-4.9); ALBUMIN/GLOBULIN RATIO 1.28; ALKALINE PHOSPHATASE 70 IU/L (42-121); ANION GAP 12 (5-13); ASPARTATE AMINO TRANSFERASE 23 IU/L (15-46); BILIRUBIN,INDIRECT 0.7 mg/dl (0-1.1); BILIRUBIN,TOTAL 0.7 mg/dl (0.2-1.3); BLOOD UREA NITROGEN 18 mg/dl (7-20); CALCIUM 9.9 mg/dl (8.4-10.2); CARBON DIOXIDE 26 mmol/L (21-31); CHLORIDE 104 mmol/L (97-110); Estimated GFR > 60 mL/min (>60); GLUCOSE 96 mg/dl (70-220); LIPASE 88 U/L (23-300); POTASSIUM 4.3 mmol/L (3.5-5.1); SODIUM 142 mmol/L (135-144)
[2018-07-24 17:59] LABS: TROPONIN-I < 0.012 ng/ml (0.000-0.120)
== END 2018-07-24 19:09 | disposition home or self-care (01) ==
LOC: E/R 14:18
DX: N39.0 Urinary tract infection, site not specified (principal)
CPT/HCPCS: 36415; 76705; 80053; 81001; 83690; 84484; 85025; 85610; 85730; 86850; 86900; 86901; 87086; 93005; 96374; 96375; 99285-25